=== PATIENT | male | born 1985 | race Caucasian/White ===

== ENCOUNTER 2016-10-17 14:52 | Emergency (ER) | payer OTHER ==
[~2016-10-17] VITALS: Ht 182.9 cm; Wt 90.9 kg
[2016-10-17 14:54] VITALS: BP 156/82; PULSE 90; RESP 20; O2SAT 97
[2016-10-17] MEDS ORDERED: Lidocaine-Epi-Tetracaine Solution 3 mL Syringe TOPICAL ONE (16:20)
--- NOTE | 2016-10-17 16:55 | ED.REPORT ---
HPI-Head Prob / Injury Date of Service Oct 17, 2016 ED Provider: Keely Gamez Nursing Notes Stated Complaint: HEAD LACERATION Chief Complaint: Laceration Nursing Notes Reviewed: Yes Allergies: Coded Allergies: acetaminophen (Verified Allergy, Mild, 10/17/16) hydrocodone (Verified Allergy, Mild, 10/17/16) Scheduled PRN Tramadol (Tramadol) 50 Mg Tablet 100 MG PO Q6H PRN PRN For Pain General Time Seen by Provider: 16:00 Chief Complaint Blunt head trauma struck in left forehead by baseball. Denies loss of consciousness. Laceration present, bleeding controlled. Hx Obtained From: Patient Arrived By: Walk-in Onset Occurred: Just prior to arrival Context of Onset: During sports Symptom Duration: Since onset Progression Since Onset: Unchanged Caused by: Blow to head Context: Occurred at: Sports field Location: : Forehead Quality: Aching Radiation: Does not radiate Severity: Current: Mild Severity: Maximum: Moderate Associated with: Denies: Confusion, Fatigue, Headache, Loss of consciousness, Nausea, Neck pain, Seizure post-accident, Vomiting, Weakness Pertinent Negative: Pt denies other symptoms Pertinent Negative: Exacerbated by nothing, Relieved by nothing Related History: Denies: Concussion history, Prior head trauma, Syncope Immunizations: All up to date Recent Healthcare: No recent doctor visit Similar Sx Previous: No Past Medical History Past Medical History normally healthy Review of Systems Basic Review of Systems Respiratory: No shortness of breath, No cough, No wheeze Cardiovascular: No chest pain, No dyspnea on exertion, No orthopnea, No parox noct dyspnea, No palpitations : No dysuria, No frequency Hematologic: No bleeding, No bruising Endocrine: No cold intolerance, No heat intolerance, No weight gain, No weight loss Allergy / Immune: No allergy Psychiatric: Normal thought content Eyes: Denies: Blurred bilateral, Diplopia, Photophobia, Visual loss bilateral Ears / Nose / Throat: Denies: Ear ringing bilateral, Earache bilateral, Hearing loss bilateral, Nose bleeding GI: Denies: Abdominal pain, Nausea, Vomiting Musculoskeletal: Denies: Back pain, Neck pain Skin: Denies Bruising Neurologic: Denies: Change LOC, Confusion, Dizziness, Headache, Lightheaded, Vision change Complete sys rev & neg: except as marked. Physical Exam Initial Vital Signs Vital Signs (First) Date Time Temp Pulse Resp B/P Pulse Ox O2 Delivery O2 Flow Rate FiO2 10/17/16 14:54 36.4 90 20 156/82 97 Room Air Initial VS: Reviewed Respiratory: Breath sounds normal, Clear to auscultation, No respiratory distress Cardiovascular: Regular rate & rhythm, Heart sounds normal, Intact distal pulses Abdomen / GI: Soft, Non-tender, No guarding, No rebound, No distention Lymphatic: No lymphadenopathy Extremities: Vascular intact, Neuro intact, No swelling, No tenderness Skin: Warm, Dry, No cyanosis Psychiatric: Mood/affect normal, Behavior normal, Normal thought content General/Constitutional: Awake, Alert, Cooperative Appearance / Presentation: Positive: Apparent trauma/injury (3cm transverse laceration just above left eyebrow) Head / Eyes: Normocephalic, PERRL, EOMI Trauma - General: Positive: Contusion (4cm diameter contusion to left forehead) , Laceration Trauma - Eye Specific: Positive: Tenderness supraorbital L, Negative: Crepitus L, Entrapment L, Gaze abnormality L, Raccoon eyes, Skull deformity, Tearduct injury L ENT: Atraumatic, Airway patent, Mucous membranes moist, Nose exam NL Neck: Atraumatic, Supple, Full range of motion, No swelling, Non-tender, No midline vertebral tend, No masses Neurologic: Oriented X3, Speech NL, No motor deficits, No sensory deficits, Cerebellar NL, Memory NL, Gait NL Procedures Laceration Management Procedure Performed by: Allied health pract Consent / Setup / Site Prep: Consent from patient, Time-out performed, Hand hygiene observed, Stand sterile technique Wound Length: 3 cm Local Anesthesia: Lidocaine w epi 1%, 4cc, 27g needle Wound Preparation: Normal saline Debridement: None Irrigation: Copious Foreign Body Explore / Removal: Explored for foreign body (none found) Repair Skin: Nylon # Sutures - Skin: 5 Closure Layers: 1 Suture Technique: Simple Post-Procedure / Complications: Antibiotic oint applied Discharge & Departure Primary Impression: Laceration of forehead, left, complicated Disposition: Home All VS Reviewed: Yes Condition: Improved Patient Instructions: Laceration (ED) Additional Instructions: Keep the wound clean and dry. Bacitracin and a Band-Aid change 2 to 3 times a day. Ok to shower, but no swimming or soaking of the wound. Watch for signs of infection: redness, swelling, pain, or pus. Return in 7 days for suture removal. Follow up with your regular doctor as needed or return to Urgent Care or the ER for any other concerns. Referrals: OTHER,PHYSICIAN (PCP) (Family) EDSupervising Provider for APC: León Rousseau MD, Lora L ARNP Oct 17, 2016 16:55
[2016-10-17] MEDS ORDERED: Lidocaine 2%-Epi 1:100,000 20 mL Inj ONE (17:24)
[2016-10-17] MEDS ORDERED: TRAM50TA2 PO (18:05)
== END 2016-10-17 18:25 | disposition home or self-care (01) ==
LOC: SED 14:52
DX: S01.81XA Laceration without foreign body of other part of head, initial encounter (principal); W21.03XA Struck by baseball, initial encounter; Y92.320 Baseball field as the place of occurrence of the external cause; Y93.64 Activity, baseball; Y99.8 Other external cause status; Z88.5 Allergy status to narcotic agent; Z88.6 Allergy status to analgesic agent